=== PATIENT | male | born 1935 | race Caucasian/White ===

== ENCOUNTER 2016-06-13 12:35 | Day surgery (SDC) | payer MEDICARE ==
[~2016-06-13] VITALS: Ht 172.7 cm; Wt 98.6 kg
[~2016-06-13 12:35] MED LIST: OMEPRAZOLE40 MG PO
[2016-06-13 13:36] LABS: BASOPHILS 0.2 % (0.0-2.0); HEMATOCRIT 38.7 % (42.0-54.0); HEMOGLOBIN 13.3 g/dL (13.5-17.5); IMMATURE GRANULOCYTES 0.2 % (0-5); LYMPHOCYTES 35.7 % (15-50); MCH 34.7 pg (26.0-34.0); MCHC 34.4 g/dL (31.0-37.0); NEUTROPHILS 51.9 % (40-80); PLATELET COUNT 142 10x3/uL (130-400); RBC 3.83 10x6/uL (4.20-6.10); RDW 12.7 % (11.5-14.5); WBC 4.9 10x3/uL (4.8-10.8)
[2016-06-13] MEDS ORDERED: COREG 3.1253.125 MG PO (13:49)
[2016-06-13] MEDS ORDERED: ISOSORBIDE MONO30 M1 PO (13:51)
[2016-06-13] MEDS ORDERED: MOBIC7.5 MG PO (13:52)
[2016-06-13] MEDS ORDERED: CRESTOR20 MG PO (13:52)
[2016-06-13] MEDS ORDERED: ZYLOPRIM100 MG PO (13:53)
[2016-06-13] MEDS ORDERED: PROZAC40 MG PO (13:53)
[2016-06-13] MEDS ORDERED: EPITOL200 MG PO (13:54)
[2016-06-13] MEDS ORDERED: PHENOBARBITAL32.4 MG PO (13:55)
[2016-06-13] MEDS ORDERED: LEVOTHYROXINE125 MCG PO (13:55)
[2016-06-13] MEDS ORDERED: HYDROCHLOROTH12.5 M1 PO (13:56)
[2016-06-13] MEDS ORDERED: ULTRAM50 MG PO (13:56)
[2016-06-13] MEDS ORDERED: VENTOLIN HFA18 GM INH (13:57)
[2016-06-13 14:02] LABS: CALC OSMOLALITY 285 mosm/kg (275-300); CALCIUM 9.2 mg/dL (8.5-10.1); CARBON DIOXIDE 28.9 mmol/L (21.0-32.0); CHLORIDE - SERUM 104 mmol/L (98-107); GLUCOSE 138 mg/dL (74-106); POTASSIUM - SERUM 3.7 mmol/L (3.5-5.1); SODIUM 141 mmol/L (136-145); UREA NITROGEN 20 mg/dL (7-18); eGFR NON AFRICAN AMERICAN 76 mL/min (90-120)
[2016-06-13 14:06] VITALS: BP 119/60; Ht 172.7 cm; Wt 98.6 kg
[2016-06-13] MEDS ORDERED: COLACE100 MG PO (17:54)
[2016-06-13] MEDS ORDERED: MIRALAX17 GM PO (17:54)
--- NOTE | 2016-06-19 13:54 | OP ---
PATIENT NAME: PARKER ELLIOTT MEDICAL RECORD: [id number] :39 LOCATION:[facility] ADMISSION DATE: SURGEON: YAMEL BERGERON MD DATE OF OPERATION: 06/13/2016 PROCEDURE: Colonoscopy with polypectomy. REFERRING PHYSICIAN: Iveth Rodrigeuz, in [place]. INDICATIONS: Mr. Elliott is a pleasant 81-year-old gentleman with a history of dysphagia. He had an EGD 03/27/2016 that showed nonobstructive Schatzki's ring dilated with esophageal balloon and erosive gastritis. He has a history of chronic constipation. He presents for outpatient screening colonoscopy. PREMEDICATIONS: Total IV anesthesia and Ancef 1 gram, propofol 300 mg (seizure disorder, advanced age). INSTRUMENT: Olympus video colonoscope. PROCEDURE AND FINDINGS: After receiving informed consent, Mr. Elliott was placed in left lateral decubitus position, sedated as per anesthesia. After achieving an adequate level of sedation, digital rectal exam was performed that showed no external hemorrhoidal tags, fissures or fistulas, normal sphincter tone, no palpable rectal masses. The colonoscope was introduced per rectally and advanced to the cecum without much difficulty. The cecum, IC valve, and appendiceal orifice was identified. There was a copious amount of thick liquid stool in the cecum, ascending colon and scattered throughout the remaining colon. Multiple lavages were performed. Within the cecum, were 2 polyps measuring 0.3-0.5 cm in size, sessile, removed with hot biopsy forceps technique. An additional polyp measured a centimeter in size, multilobular carpet style polyp was removed with hot biopsy forceps technique. Within the ascending colon, were 9 polyps measuring in size from 0.3-0.75 cm in size, sessile, removed with hot biopsy forcep technique. In the transverse colon, scattered throughout the transverse colon were an additional 14 polyps measuring in size from 0.3-0.5 cm in size, sessile, removed with hot biopsy forcep technique. In the descending colon, were 2 polyps measuring 0.3-0.5 cm in size, sessile, removed with hot biopsy forcep technique. Retroflexion in rectum showed no retroflexion in the rectum, showed mild internal hemorrhoids. Poor prep was present. Mr. Elliott tolerated the procedure well, no immediate complications. Withdrawal time was 20 minutes. ASSESSMENT: 1. Three cecal polyp status post polypectomy. 2. Nine ascending colon polyp status post polypectomy. 3. Fourteen transverse colon polyp status post polypectomy. 4. Two descending polyp status post polypectomy. 5. Mild internal hemorrhoids. RECOMMENDATIONS: 1. High-fiber diet. 2. Absolutely avoid aspirin, nonsteroidal anti-inflammatory drugs and AYALA-2 inhibitors for 14 days post polypectomy. 3. Fro chronic constipation, recommend MiraLax twice a day and Colace 100 mg 2 OPERATIVE REPORT [id number] PARKER ELLIOTT p.o. daily. TRANSINT:[id number] Voice Confirmation ID: [id number] DOCUMENT ID: [id number] YAMEL BERGERON MD at 1354 CC: IVETH RODRIGUEZ [id number] DICTATION DATE: 06/13/161715 FILM PAINTER: 06/13/16 1831 [facility] 06/13/16 [facility] [address] [place] [address]
== END 2016-06-13 18:28 | disposition home or self-care (01) ==
LOC: D.OPS 12:35
PROVIDERS: Anesthesiology
DX: Z12.11 Encounter for screening for malignant neoplasm of colon (principal); D12.0 Benign neoplasm of cecum; D12.2 Benign neoplasm of ascending colon; D12.3 Benign neoplasm of transverse colon; D12.4 Benign neoplasm of descending colon; K64.8 Other hemorrhoids; K59.09 Other constipation; G40.909 Epilepsy, unspecified, not intractable, without status epilepticus